=== PATIENT | female | born 1980 | race Hispanic/Latino ===

== ENCOUNTER 2019-10-08 01:29 | Observation (INO) ==
[2019-10-08 02:13] LABS: URINE SOURCE CLEAN CATCH
[2019-10-08 02:17] LABS: BILIRUBIN URINE NEGATIVE (NEGATIVE); BLOOD URINE NEGATIVE (NEGATIVE); COLOR STRAW; GLUCOSE URINE 70 mg/dL (NEGATIVE); KETONE URINE NEGATIVE (NEGATIVE); LEUKOCYTES URINE NEGATIVE (NEGATIVE); NITRITE URINE NEGATIVE (NEGATIVE); PROTEIN URINE NEGATIVE (NEGATIVE); SP GRAVITY URINE 1.011; TURBIDITY URINE CLEAR (CLEAR); UR EPITHELIAL CELLS <10 /HPF (<10); URINE BACTERIA NEGATIVE /HPF; URINE RBC <10 /HPF (<10); URINE WBC <10 /HPF (<10); UROBILINOGEN URINE NORMAL (NORMAL)
[2019-10-08 02:26] LABS: BASO# 0.03 X1000 (0.0-0.2); BASO% 0.2 % (0.0-0.8); EOS# 0.19 X1000 (0.0-0.7); EOS% 1.3 % (0.0-10.0); HEMATOCRIT 41.4 % (37.0-47.0); HEMOGLOBIN 14.1 g/dL (12.0-16.0); IMM GRAN# 0.05 X1000 (0.0-0.04); IMM GRAN% 0.3 % (0.0-0.5); LYMPH# 2.67 X1000 (1.2-3.4); MCH 29.9 PG (27-31); MCHC 34.1 g/dL (33-37); MCV 87.9 FL (81-99); MONO# 0.94 X1000 (0.11-0.59); MONO% 6.3 % (1.7-9.3); MPV 10.5 FL (7.4-10.4); NEUT# 10.94 X1000 (1.4-6.5); NEUT% 73.9 % (42.2-75.2); PLT 385 X1000 (130-400); RBC 4.71 XMIL (4.2-5.4); WBC 14.82 X1000 (4.8-10.8)
[2019-10-08 02:55] LABS: ACETAMINOPHEN < 1.2 ug/mL (10-30); AGAP 14; ALB/GLOB RATIO 1.6; ALBUMIN 4.8 g/dL (3.5-5.0); ALKALINE PHOSPHATASE 74 U/L (32-104); BUN 15 mg/dL (8-22); CALCIUM 9.6 mg/dL (8.8-10.2); CHLORIDE 102 mmol/L (98-107); COSMO 279; CREATININE 0.8 mg/dL (0.5-0.9); ESTIMATED GFR > 60; GLUCOSE 115 mg/dL (70-104); GOT 17 U/L (10-30); GPT 21 U/L (10-36); POTASSIUM 3.8 mmol/L (3.5-5.1); SALICYLATES < 3.00 mg/dL (3-10); SODIUM 139 mmol/L (136-145); TCO2 23 mmol/L (25-35); TOTAL BILIRUBIN 0.28 mg/dL (0.20-1.00); TOTAL PROTEIN 7.8 g/dL (6.3-8.3)
[2019-10-08 03:10] LABS: FREE T4 1.42 ng/dL (0.93-1.70); TSH 2.66 uIUmL (0.27-4.20)
[2019-10-08 03:13] LABS: UR AMPHETAMINES QUAL NONE DETECTED (NONE DETECT); UR BARBITUATES QUAL NONE DETECTED (NONE DETECT); UR BENZODIAZEPIN QUAL NONE DETECTED (NONE DETECT); UR CANNABINOIDS QUAL NONE DETECTED (NONE DETECT); UR COCAINE QUAL NONE DETECTED (NONE DETECT); UR METHADONE QUAL NONE DETECTED (NONE DETECT); UR OPIATES QUAL NONE DETECTED (NONE DETECT); UR OXYCODONE QUAL NONE DETECTED (NONE DETECT); UR PCP QUAL NONE DETECTED (NONE DETECT)
--- NOTE | 2019-10-08 04:41 | EKG Report ---
Test Performed on : 10/08/2019 01:53:53 AM Test Reason : overdose Blood Pressure : / mmHG Vent. Rate : 126 BPM Atrial Rate : 126 BPM P-R Int : 122 ms QRS Dur : 092 ms QT Int : 338 ms P-R-T Axes : 051 009 047 degrees QTc Int : 489 ms Sinus tachycardia. Otherwise normal ECG When compared with ECG of 14-FEB-2016 19:06, Vent. rate has increased BY 58 BPM Unconfirmed Result
--- NOTE | 2019-10-08 05:32 | PROVIDER DOCUMENTATION ---
HPI-Psychological Disorder - General Chief Complaint: Suicide Attempt Stated Complaint: overdose Time Seen by Provider: 10/08/19 02:06 Source: patient, EMS Allergies/Adverse Reactions: Patient Allergies Allergy/AdvReac Type Severity Reaction Status Date / Time No Known Allergies Allergy Verified 10/08/19 02:14 Home Medications: Home Medication List Medication Instructions Recorded Confirmed Last Taken Type Amlodipine Besylate/Benazepril 1 ea PO DAILY 10/08/19 10/08/19 10/08/19 01:00 History [Amlodipine-Benazepril 5-10 mg] - History of Present Illness-Psych Nature of Presenting Problem: A 38 y/o female presents with EMS after she ingested her BP medications. Pt is unsure how many tablets she took. Feels weak in the legs and sleepy. Denies any other symptoms. Says she wishes to as her family does not love her. Pt is djiboutian speaking and a federal appellate law clerk line was used for translation. Review of Systems - Adult - REVIEW OF SYSTEMS - ADULT Constitutional: reports: no symptoms reported Eyes: denies: no symptoms reported Ears, Nose, Mouth & Throat: denies: no symptoms reported Cardiovascular: denies: no symptoms reported Respiratory: denies: no symptoms reported Gastrointestinal: denies: no symptoms reported Genitourinary: denies: no symptoms reported Musculoskeletal: denies: no symptoms reported Integumentary: denies: no symptoms reported Neurological: denies: no symptoms reported Psychiatric: reports: see HPI, depression, suicidal thoughts Endocrine: denies: no symptoms reported Hematologic/Lymphatic: denies: no symptoms reported Allergic/Immunologic: denies: no symptoms reported Past History - Adult - PAST MEDICAL HISTORY-ADULT Review of Records: reports: Nursing Assessment Review, Medications Reviewed, Social history reviewed & non-contributory. Major Childhood Illnesses: reports: denies history Cardiovascular: reports: denies history - IMMUNIZATION STATUS Childhood Immunizations: See Nurse Assessment Flu Vaccine: See Nurse Assessment Physical Exam-Psych Focus - Physical Exam-Psych Initial Vital Signs Reviewed: Yes Appearance: appropriate appearance, disheveled, impaired insight, other (depressed) Neurological: alert, oriented x 3 Behavior/Eye Contact/Speech: normal speech, avoids eye contact Thoughts/Hallucinations: no apparent hallucination HENMT: moist mucous membranes, normal ENT inspection Neck: supple Respiratory: lungs clear, normal breath sounds, no respiratory distress, no accessory muscle use Abdominal Exam: non tender, soft Extremity: no pedal edema Integumentary: normal color, warm/dry Progress - PLAN OF CARE/RESULTS Progress/Plan/Lab Results: Vital Signs - 8 hr 10/08/19 01:59 10/08/19 02:00 10/08/19 02:03 Temperature 98.2 F Pulse Rate 128 H 134 H 120 H Respiratory Rate 21 18 21 Blood Pressure 168/101 147/96 147/96 O2 Sat by Pulse Oximetry 100 100 99 10/08/19 02:18 10/08/19 02:38 10/08/19 02:48 Temperature Pulse Rate 139 H 142 H 141 H Respiratory Rate 21 26 H 15 Blood Pressure 139/92 151/92 142/85 O2 Sat by Pulse Oximetry 100 100 100 10/08/19 03:03 10/08/19 03:18 10/08/19 03:33 Temperature Pulse Rate 144 H 145 H 134 H Respiratory Rate 23 16 19 Blood Pressure 139/83 134/74 127/74 O2 Sat by Pulse Oximetry 99 100 99 10/08/19 03:48 10/08/19 04:03 10/08/19 04:18 Temperature Pulse Rate 136 H 135 H 132 H Respiratory Rate 16 18 19 Blood Pressure 127/70 116/69 115/70 O2 Sat by Pulse Oximetry 100 98 98 10/08/19 04:33 10/08/19 04:48 Temperature Pulse Rate 128 H 129 H Respiratory Rate 19 16 Blood Pressure 111/68 116/67 O2 Sat by Pulse Oximetry 98 100 Bedside Urine ED: Urine Bedside Start: 10/08/19 02:04 Freq: ORDERED Status: Active Protocol: Activity Type Activity Date Activity User E-Sign Co-Sign Detail Recorded Client Recorded Date Recorded By Document 10/08/19 02:05 [id number] 10/08/19 02:05 [id number] 10/08/19 02:05 Point of Care [Bedside Point of Care] -Lot # [id number] - Results Negative -Control Line Visible? Yes Laboratory Results - last 24 hr 10/08/19 10/08/19 10/08/19 01:37 01:42 01:42 WBC 14.82 H RBC 4.71 Hgb 14.1 Hct 41.4 MCV 87.9 MCH 29.9 MCHC 34.1 RDW Std Deviation 13.0 Plt Count 385 MPV 10.5 H Immature Gran % (Auto) 0.3 Neut % (Auto) 73.9 Lymph % (Auto) 18.0 L [place] % (Auto) 6.3 Eos % (Auto) 1.3 Baso % (Auto) 0.2 Immature Gran # (Auto) 0.05 H Neut # (Auto) 10.94 H Lymph # (Auto) 2.67 [place] # (Auto) 0.94 H Eos # (Auto) 0.19 Baso # (Auto) 0.03 Sodium Potassium Chloride Carbon Dioxide Anion Gap BUN Creatinine Estimated GFR/1.73 m2 BUN/Creatinine Ratio Glucose Calculated Osmolality Calcium Magnesium Total Bilirubin AST ALT Alkaline Phosphatase Total Protein Albumin Globulin Albumin/Globulin Ratio Vitamin B12 TSH Free T4 Urine Source Urine Color Urine Turbidity Urine pH Ur Specific [place] Urine Protein Ur Glucose (Stick) Ur Ketones (Stick) Urine Blood Urine Nitrite Urine Bilirubin Urobilinogen Dipstick Urine Leukocytes Urine WBC (Auto) Urine RBC (Auto) U Epithel Cells (Auto) Urine Bacteria (Auto) Salicylates Urine Opiates Screen NONE DETECTED Ur Oxycodone Screen NONE DETECTED Ur Methadone, Qual NONE DETECTED Acetaminophen Ur Barbiturates Screen NONE DETECTED Ur Phencyclidine Scrn NONE DETECTED Ur Amphetamines Screen NONE DETECTED U Benzodiazepines Scrn NONE DETECTED Urine Cocaine Screen NONE DETECTED U Cannabinoids Screen NONE DETECTED Plasma/Serum Ethyl Alc 10/08/19 10/08/19 10/08/19 01:42 01:42 01:42 WBC RBC Hgb Hct MCV MCH MCHC RDW Std Deviation Plt Count MPV Immature Gran % (Auto) Neut % (Auto) Lymph % (Auto) [place] % (Auto) Eos % (Auto) Baso % (Auto) Immature Gran # (Auto) Neut # (Auto) Lymph # (Auto) [place] # (Auto) Eos # (Auto) Baso # (Auto) Sodium 139 Potassium 3.8 Chloride 102 Carbon Dioxide 23 L Anion Gap 14 BUN 15 Creatinine 0.8 Estimated GFR/1.73 m2 > 60 BUN/Creatinine Ratio 19 Glucose 115 H Calculated Osmolality 279 Calcium 9.6 Magnesium 2.0 Total Bilirubin 0.28 AST 17 ALT 21 Alkaline Phosphatase 74 Total Protein 7.8 Albumin 4.8 Globulin 3.0 Albumin/Globulin Ratio 1.6 Vitamin B12 501 TSH 2.66 Free T4 1.42 Urine Source CLEAN CATCH Urine Color STRAW Urine Turbidity CLEAR Urine pH 6.0 Ur Specific [place] 1.011 Urine Protein NEGATIVE Ur Glucose (Stick) 70 A Ur Ketones (Stick) NEGATIVE Urine Blood NEGATIVE Urine Nitrite NEGATIVE Urine Bilirubin NEGATIVE Urobilinogen Dipstick NORMAL Urine Leukocytes NEGATIVE Urine WBC (Auto) <10 Urine RBC (Auto) <10 U Epithel Cells (Auto) <10 Urine Bacteria (Auto) NEGATIVE Salicylates < 3.00 L Urine Opiates Screen Ur Oxycodone Screen Ur Methadone, Qual Acetaminophen < 1.2 L Ur Barbiturates Screen Ur Phencyclidine Scrn Ur Amphetamines Screen U Benzodiazepines Scrn Urine Cocaine Screen U Cannabinoids Screen Plasma/Serum Ethyl Alc 10/08/19 06:03 WBC RBC Hgb Hct MCV MCH MCHC RDW Std Deviation Plt Count MPV Immature Gran % (Auto) Neut % (Auto) Lymph % (Auto) [place] % (Auto) Eos % (Auto) Baso % (Auto) Immature Gran # (Auto) Neut # (Auto) Lymph # (Auto) [place] # (Auto) Eos # (Auto) Baso # (Auto) Sodium 141 Potassium 4.1 Chloride 104 Carbon Dioxide 21 L Anion Gap 16 BUN 15 Creatinine 0.8 Estimated GFR/1.73 m2 > 60 BUN/Creatinine Ratio 19 Glucose 116 H Calculated Osmolality 283 Calcium 9.3 Magnesium 2.0 Total Bilirubin 0.31 AST 16 ALT 19 Alkaline Phosphatase 70 Total Protein 7.3 Albumin 4.4 Globulin 2.9 Albumin/Globulin Ratio 1.5 Vitamin B12 TSH Free T4 Urine Source Urine Color Urine Turbidity Urine pH Ur Specific [place] Urine Protein Ur Glucose (Stick) Ur Ketones (Stick) Urine Blood Urine Nitrite Urine Bilirubin Urobilinogen Dipstick Urine Leukocytes Urine WBC (Auto) Urine RBC (Auto) U Epithel Cells (Auto) Urine Bacteria (Auto) Salicylates Urine Opiates Screen Ur Oxycodone Screen Ur Methadone, Qual Acetaminophen Ur Barbiturates Screen Ur Phencyclidine Scrn Ur Amphetamines Screen U Benzodiazepines Scrn Urine Cocaine Screen U Cannabinoids Screen Plasma/Serum Ethyl Alc Orders Category Date Time Status IV Insertion ORDERED Care 10/08/19 05:49 Active Urine Preg [ED: Urine Bedside] ORDERED Care 10/08/19 02:04 Active ACETAMINOPHEN [TDM] Stat Lab 10/08/19 01:42 Completed ALCOHOL BLOOD Stat Lab 10/08/19 01:42 Completed CBC WITH ELECTRONIC DIFF [HEME] Stat Lab 10/08/19 01:42 Completed COMPREHENSIVE METABOLIC PANEL [CHEM] Stat Lab 10/08/19 01:42 Completed COMPREHENSIVE METABOLIC PANEL [CHEM] Stat Lab 10/08/19 06:03 Completed FREE T4 Stat Lab 10/08/19 01:42 Completed MAGNESIUM [CHEM] Stat Lab 10/08/19 01:42 Completed MAGNESIUM [CHEM] Stat Lab 10/08/19 06:03 Completed SALICYLATES [TDM] Stat Lab 10/08/19 01:42 Completed TSH Stat Lab 10/08/19 01:42 Completed URINALYSIS W/POSS RFLX CULT [URINALYSIS] Stat Lab 10/08/19 01:42 Completed URINE DRUG SCREEN Stat Lab 10/08/19 01:37 Completed VITAMIN B12 Stat Lab 10/08/19 01:42 Completed 0.9% Sodium Chloride Inj [Ns] 1,000 ml Med 10/08/19 06:38 Discontinued .ROUTE As directed 0.9% Sodium Chloride Inj [Ns] 1,000 ml Med 10/08/19 06:29 Active IV 250 mls/hr 0.9% Sodium Chloride Inj [Ns] 1,000 ml Med 10/08/19 05:48 Discontinued IV 999 mls/hr EKG [EKG] Stat Ther 10/08/19 01:47 Draft d/w Dr Raymond for 2 physician hold as pt voiced desire to go home. discussed case with Dr. Cox. Patent is suicidal and requires 2 doctor hold to prevent self harm. Dr. Amarjit Raymond MD. Result Diagrams: 10/08/19 01:42 10/08/19 06:03 - REASSESSMENT Reassessment #1 Time Reassessed: 05:00 Status: other (stable) Reassessment #2 Time Reassessed: 06:00 Status: other (stable. will start onmaintainance fluids.) - CONSULTS/PCP/HOSPITALIST Notification #1 *Consult/PCP/Hospitalist*: d/w Denisha for Hospitalist Time Discussed: 07:10 Consult Disposition: Admit Departure - Departure Date of Disposition Decision: 10/08/19 Time of Disposition Decision: 07:15 DIAGNOSIS: Suicide attempt by drug ingestion Disposition: ADMITTED INPATIENT 09 Certified Medical Emergency: Emergent Condition: Stable Referrals and Follow-Ups: None,PCP [Primary Care Provider] - - Critical Care Note This patient required my direct & personal management of CC.: No Attestation - Physician/ JUD Attestation Patient care was provided by Advanced Practice Provider:: No The physician spent face to face time with patient:: Yes Advanced Practice Provider documentation review:: Supervising physician onsite and consulted in the evaluation and care of this patient. The physician did have a face to face encounter with the patient.
[2019-10-08] MEDS ORDERED: NS 1,000 ML IV ONE ×3 (05:48→10:07)
[2019-10-08] MEDS ORDERED: NS 1,000 ML ONE (06:38)
[2019-10-08 06:42] LABS: AGAP 16; ALB/GLOB RATIO 1.5; ALBUMIN 4.4 g/dL (3.5-5.0); ALKALINE PHOSPHATASE 70 U/L (32-104); BUN 15 mg/dL (8-22); CALCIUM 9.3 mg/dL (8.8-10.2); CHLORIDE 104 mmol/L (98-107); COSMO 283; CREATININE 0.8 mg/dL (0.5-0.9); ESTIMATED GFR > 60; GLUCOSE 116 mg/dL (70-104); GOT 16 U/L (10-30); GPT 19 U/L (10-36); POTASSIUM 4.1 mmol/L (3.5-5.1); SODIUM 141 mmol/L (136-145); TCO2 21 mmol/L (25-35); TOTAL BILIRUBIN 0.31 mg/dL (0.20-1.00); TOTAL PROTEIN 7.3 g/dL (6.3-8.3)
[2019-10-08] MEDS ORDERED: ZOFRAN IV PRN ×2 (08:39→10:34)
--- NOTE | 2019-10-08 09:19 | EKG Report ---
Test Performed on : 10/08/2019 08:52:28 AM Test Reason : CCB overdose, Blood Pressure : / mmHG Vent. Rate : 118 BPM Atrial Rate : 118 BPM P-R Int : 126 ms QRS Dur : 094 ms QT Int : 354 ms P-R-T Axes : 059 016 036 degrees QTc Int : 496 ms Sinus tachycardia. Otherwise normal ECG When compared with ECG of 08-OCT-2019 01:53, (Unconfirmed) No significant change was found Unconfirmed Result
[2019-10-08] MEDS ORDERED: TYLENOL PO PRN (10:34)
[2019-10-08] MEDS ORDERED: NS 1,000 ML IV SCH (10:45)
[2019-10-08 11:33] LABS: AGAP 14; ALBUMIN 3.7 g/dL (3.5-5.0); BUN 12 mg/dL (8-22); CALCIUM 8.1 mg/dL (8.8-10.2); CHLORIDE 110 mmol/L (98-107); COSMO 284; CREATININE 0.7 mg/dL (0.5-0.9); ESTIMATED GFR > 60; GLUCOSE 123 mg/dL (70-104); PHOSPHORUS 3.4 mg/dL (2.7-4.5); POTASSIUM 3.8 mmol/L (3.5-5.1); SODIUM 142 mmol/L (136-145); TCO2 18 mmol/L (25-35)
[2019-10-08] MEDS: NS 1,000 ML IV SCH ×2 (11:59→19:23)
[2019-10-08 12:23] LABS: ALLEN TEST YES; BE -1.2 mmoll (-3.0-3.0); BLOOD TYPE ARTERIAL; HCO3-(ACT) 23.9 mmoll (20.0-26.0); METHB 1.1 % (0.0-1.5); O2(CT) 15.9 mL/dL (15.0-23.0); O2HB 92.4 % (95.0-99.0); PCO2(98.6) 33 mmHg (35-45); PO2(98.6) 62 mmHg (60-100); SAMPLE BLOOD; THB 12.2 g/dL (11.5-17.4); pH(98.6) 7.44 (7.35-7.45)
[2019-10-08 12:24] LABS: MODALITY ROOM AIR
[2019-10-08] MEDS ORDERED: CALCIUM GLUCONATE 2 GM in NS 100 ML IV ONE ×2 (12:29→18:25)
[2019-10-08] MEDS ORDERED: MAGNESIUM SULFATE 2 GM/S.W.I. 2 GM/50 ML IVPB IV ONE (12:29)
[2019-10-08] MEDS ORDERED: POTASSIUM CHLORIDE 20 MEQ/SWI 20 MEQ/100 ML IVPB IV ONE (12:58)
--- NOTE | 2019-10-08 13:29 | Diag Imaging Result Doc PS360 ---
CHEST-1 VIEW - 10/08/2019 INDICATION: dyspnea COMPARISON: None FINDINGS: The lungs are normally expanded and clear. Heart size and mediastinal contours are normal. No pneumothorax or pleural effusion. IMPRESSION: Negative exam. Electronically signed by Kvng Wang 10/08/2019 1:27 PM
[2019-10-08 14:12] LABS: AGAP 13; ALBUMIN 3.6 g/dL (3.5-5.0); BUN 10 mg/dL (8-22); CHLORIDE 113 mmol/L (98-107); COSMO 287; CREATININE 0.6 mg/dL (0.5-0.9); ESTIMATED GFR > 60; GLUCOSE 90 mg/dL (70-104); PHOSPHORUS 3.2 mg/dL (2.7-4.5); POTASSIUM 3.9 mmol/L (3.5-5.1); SODIUM 145 mmol/L (136-145); TCO2 19 mmol/L (25-35)
--- NOTE | 2019-10-08 17:41 | PROGRESS NOTE ---
DATE: 10/08/2019 PLAN: I spoke with the Poison Control Center and recommendations are as follows: 1. Check serial EKGs. If QTc is greater than 500, give 2 g of magnesium IV and continue to check serial EKGs. 2. Continue with IV hydration. 3. If MAP is less than 60, start norepinephrine per protocol and call Poison Control for further recommendations. If a second pressor is needed, they recommend using epinephrine, to titrate each to keep the MAP greater than 60. 4. For MAP less than 60, give calcium chloride 1 to 2 g IV bolus every 10-20 minutes or an infusion of 0.2 to 0.4 mL/kg/h if the patient has a central line. If the patient does not have a central line, they recommend calcium gluconate 3 to 6 g every 10-20 minutes or an infusion of 0.6 to 1.2 mL/kg/h. 5. If any of the above are instituted, norepinephrine, epinephrine, we are to keep potassium 4.5 to 5, magnesium greater than 2, calcium greater than 8.5. We are encouraged to call Poison Control when any of the above measures are instituted. If MAP is below 60 and does not respond to IV fluids, norepinephrine, epinephrine, calcium, they will instruct us in giving glucagon, insulin and lipids. Dictated by YESSENIA Aiken for Janeth Erickson MD cc: YESSENIA Aiken MD
[2019-10-08 18:22] LABS: AGAP 12; ALBUMIN 3.5 g/dL (3.5-5.0); BUN 8 mg/dL (8-22); CALCIUM 8.1 mg/dL (8.8-10.2); CHLORIDE 111 mmol/L (98-107); COSMO 287; CREATININE 0.6 mg/dL (0.5-0.9); ESTIMATED GFR > 60; GLUCOSE 130 mg/dL (70-104); PHOSPHORUS 2.7 mg/dL (2.7-4.5); POTASSIUM 3.9 mmol/L (3.5-5.1); SODIUM 144 mmol/L (136-145); TCO2 21 mmol/L (25-35)
[2019-10-08] MEDS ORDERED: KLOR-CON PO ONE (18:27)
--- NOTE | 2019-10-08 18:29 | EKG Report ---
Test Performed on : 10/08/2019 6:16:48 PM Test Reason : CCB/DEREK overdose Blood Pressure : / mmHG Vent. Rate : 090 BPM Atrial Rate : 090 BPM P-R Int : 130 ms QRS Dur : 096 ms QT Int : 402 ms P-R-T Axes : 060 044 044 degrees QTc Int : 491 ms Normal sinus rhythm. Prolonged QT Abnormal ECG When compared with ECG of 08-OCT-2019 12:04, (Unconfirmed) No significant change was found Confirmed by Hiral OSHEA, Cj ([id number]) on 10/10/2019 8:33:22 AM
--- NOTE | 2019-10-08 18:53 | HISTORY AND PHYSICAL ---
CHIEF COMPLAINT: Suicide attempt, overdose. HISTORY OF PRESENT ILLNESS: This is a 38-year-old female with a history of hypertension, diabetes mellitus, who presents to the emergency room after a suicide attempt. The patient took an unknown amount of amlodipine 5 mg/benazepril 10 mg at 1 time in attempt to kill herself. According to the chart, she stated that there is no family here. The ones that are close do not care about her, she states God does not want her to be happy. On arrival to the emergency room she stated that she felt weak in the legs and sleepy. PAST MEDICAL HISTORY: Hypertension, prediabetes and depression. PAST SURGICAL HISTORY: She denied. SOCIAL HISTORY: She denies any alcohol, tobacco or illicit drug use. ALLERGIES: No known drug allergies. HOME MEDICATIONS: Amlodipine/benazepril 5/10. REVIEW OF SYSTEMS: Discussed with patient with pertinent positives stated in the HPI. She denied any syncope or dizziness any chest pain or palpitations, any shortness of breath, cough, fever, chills, night sweats, any nausea, vomiting, diarrhea, constipation, black or bloody vomitus or stools, any hematuria, dysuria, frequency urgency. PHYSICAL EXAMINATION: GENERAL: This is a 38-year-old female who is sitting up on the stretcher in the emergency room in no distress. VITAL SIGNS: Blood pressure is 97/54 with a heart rate of 101, respirations are 17, O2 saturations are 99 to 100 percent on room air, temperature is 98.3 degrees oral. HEENT: Pupils equal, round, react to light. EOMs are intact sclerae anicteric. Head is normocephalic, atraumatic. Mucous membranes are moist. NECK: Supple with trachea midline. CARDIOVASCULAR: Regular rate and rhythm. She is tachycardic, S1 and S2 appreciated. She has no lower extremity edema. Peripheral pulses are palpable x4 extremities. PULMONARY: Breath sounds are clear with no increased work of breathing noted. Chest rises falls symmetric with respiration. Chest wall is nontender to palpation. GASTROINTESTINAL: Abdomen soft, nontender, nondistended with bowel sounds in all 4 quadrants. GENITOURINARY: No CVA or suprapubic tenderness. NEUROLOGIC: She is alert, oriented x3. SKIN: Warm and dry. LABS: WBC is 14.8 with hemoglobin 14.1, hematocrit 41.4 and platelets of 385,000, sodium 141, potassium 4.1, BUN 15, creatinine 0.8 with a glucose of 116. TSH is 2.6 with free T4 1.42 and vitamin B12 501, calcium is 9.3. Urinalysis is essentially negative. Urine drug screen revealed none detected. Salicylates less than 3. Acetaminophen less than 1.2 and plasma serum alcohol is none detected. Chest x-ray revealed negative exam. EKG at 1:47 a.m. revealed sinus tach at a rate of 126 with a QTc of 489, EKG at 8:36 a.m. revealed sinus tachy at a rate of 118 with a QTc of 496. ASSESSMENT AND PLAN: 1. Suicide attempt by drug ingestion intentional. 2. Presumed calcium channel christo overdose. 3. Presumed DEREK inhibitor overdose. 4. Leukocytosis. 5. Tachycardia. 6. History of hypertension. 7. Hypotension. PLAN: The patient will be admitted to intensive care for close monitoring. Will give supplemental oxygen as needed, will continue with IV hydration. Poison Control will be called for specific guidelines. Will check an EKG now, will check a renal profile series along with and renal profile and CBC in the morning. Once she is medically stable we will have her evaluated by Lois Mccurdy. The patient was evaluated and plan was discussed with Dr. Erickson. Further treatments pending hospital course. Dictated by YESSENIA Aiken for Dinh Izaguirre MD cc: YESSENIA Aiken MD [facility]
[2019-10-08 23:01] LABS: AGAP 11; ALBUMIN 3.7 g/dL (3.5-5.0); BUN 8 mg/dL (8-22); CALCIUM 8.6 mg/dL (8.8-10.2); CHLORIDE 107 mmol/L (98-107); COSMO 274; CREATININE 0.6 mg/dL (0.5-0.9); ESTIMATED GFR > 60; GLUCOSE 101 mg/dL (70-104); PHOSPHORUS 2.9 mg/dL (2.7-4.5); POTASSIUM 4.3 mmol/L (3.5-5.1); SODIUM 138 mmol/L (136-145); TCO2 20 mmol/L (25-35)
--- NOTE | 2019-10-09 00:44 | EKG Report ---
Test Performed on : 10/08/2019 11:58:47 PM Test Reason : EVAL Blood Pressure : / mmHG Vent. Rate : 079 BPM Atrial Rate : 079 BPM P-R Int : 134 ms QRS Dur : 088 ms QT Int : 398 ms P-R-T Axes : 056 016 042 degrees QTc Int : 456 ms Normal sinus rhythm. Normal ECG When compared with ECG of 08-OCT-2019 18:16, (Unconfirmed) No significant change was found Confirmed by Hiral OSHEA, Cj ([id number]) on 10/10/2019 8:35:46 AM
--- NOTE | 2019-10-09 00:45 | EKG Report ---
Test Performed on : 10/08/2019 12:04:25 PM Test Reason : CCB/DEREK overdose Blood Pressure : / mmHG Vent. Rate : 097 BPM Atrial Rate : 097 BPM P-R Int : 140 ms QRS Dur : 098 ms QT Int : 402 ms P-R-T Axes : 065 027 040 degrees QTc Int : 510 ms Normal sinus rhythm. Prolonged QT Abnormal ECG When compared with ECG of 08-OCT-2019 08:52, (Unconfirmed) No significant change was found Confirmed by Hiral OSHEA, Cj ([id number]) on 10/10/2019 8:32:43 AM
[2019-10-09] MEDS: NS 1,000 ML IV SCH ×2 (01:11→05:52)
[2019-10-09 06:18] LABS: AGAP 12; ALBUMIN 3.4 g/dL (3.5-5.0); BUN 7 mg/dL (8-22); CALCIUM 8.3 mg/dL (8.8-10.2); CHLORIDE 107 mmol/L (98-107); COSMO 275; CREATININE 0.6 mg/dL (0.5-0.9); ESTIMATED GFR > 60; GLUCOSE 91 mg/dL (70-104); MAGNESIUM 1.8 mg/dL (1.5-2.7); PHOSPHORUS 3.2 mg/dL (2.7-4.5); POTASSIUM 4.1 mmol/L (3.5-5.1); SODIUM 139 mmol/L (136-145); TCO2 20 mmol/L (25-35)
[2019-10-09 07:09] LABS: HEMATOCRIT 35.4 % (37.0-47.0); HEMOGLOBIN 11.7 g/dL (12.0-16.0); MCH 29.8 PG (27-31); MCHC 33.1 g/dL (33-37); MCV 90.3 FL (81-99); MPV 10.5 FL (7.4-10.4); RBC 3.92 XMIL (4.2-5.4); RDW 13.3 % (11.5-14.5); WBC 10.63 X1000 (4.8-10.8)
--- NOTE | 2019-10-09 07:59 | EKG Report ---
Test Performed on : 10/09/2019 05:56:09 AM Test Reason : CCB OD Blood Pressure : / mmHG Vent. Rate : 078 BPM Atrial Rate : 078 BPM P-R Int : 138 ms QRS Dur : 094 ms QT Int : 400 ms P-R-T Axes : 060 059 055 degrees QTc Int : 456 ms Normal sinus rhythm. with sinus arrhythmia. Normal ECG When compared with ECG of 08-OCT-2019 23:58, (Unconfirmed) No significant change was found Confirmed by Hiral OSHEA, Cj ([id number]) on 10/10/2019 8:36:38 AM
[2019-10-09 10:18] VITALS: BP 106/57
--- NOTE | 2019-10-16 21:30 | DISCHARGE SUMMARY ---
ADMISSION DATE: 10/08/2019 DISCHARGE DATE: 10/09/2019 FINAL DISCHARGE DIAGNOSES: Intentional drug overdose. HOSPITAL COURSE: Ms. Bull is a 38-year-old female who presented to the ER with an intentional overdose of amlodipine/benazepril. The patient was admitted to the hospitalist service and started on aggressive IV fluid hydration. Also, Poison Control was called, who gave recommendations on frequent monitoring of the patient. The patient's electrolytes were monitored and replaced aggressively and the patient was monitored closely on telemetry. The patient states that she got upset about a misunderstanding with her boyfriend and decided to overdose on pills as a way of dealing with her issues. The patient improved clinically, and so Lois Mccurdy was consulted for psychiatric evaluation. After evaluation by Lois Mccurdy, it was determined that the patient did not meet criteria for inpatient treatment. A safety plan was performed for the patient and the patient was cleared for discharge on 10/09/2019. cc: Janeth Erickson MD
== END 2019-10-09 12:34 | disposition home or self-care (01) ==
LOC: SUPCPDRO → ED 01:29 → INTOOBSV 01:30 → ICU 01:30
PROVIDERS: ATTEND Internal Medicine